=== PATIENT | female | born 1980 | race Caucasian/White ===

== ENCOUNTER → 2018-07-05 | Outpatient (REF) ==
--- NOTE | 2018-07-06 02:37 | REP ---
Clinical: Pain and disability. Technique: AP, lateral, bilateral oblique and sunrise views of the left knee. Findings: Advanced tricompartmental osteoarthritic degenerative changes include osteophytosis, subchondral sclerosis, joint space narrowing. No acute fracture dislocation. No obvious effusion. Impression: Advanced tricompartmental osteoarthritic degenerative changes. Electronically Signed by Jamie Grant MD 07/06/2018 02:29 A
== END ==
LOC: M SMT 11:28
PROVIDERS: ATTEND Internal Medicine
DX: M25.762 Osteophyte, left knee (principal); M17.12 Unilateral primary osteoarthritis, left knee